=== PATIENT | female | born 1955 | race Caucasian/White ===

== ENCOUNTER → 2019-02-26 | Outpatient (CLI) | payer MEDICARE, BC | LOC: LB.CLINIC 09:57 | PROVIDERS: ATTEND Family Medicine | DX: E03.9 Hypothyroidism, unspecified (principal); G24.4 Idiopathic orofacial dystonia; E78.2 Mixed hyperlipidemia | CPT/HCPCS: 36415; 80048; 84443; 85025 ==

== ENCOUNTER 2023-08-17 09:24 | Day surgery (SDC) | payer MEDICARE, BC ==
[2023-08-17] MEDS: Sodium Chloride 0.9% 1,000 ML IV SCH (09:59)
[2023-08-17] MEDS ORDERED: Propofol 200 MG/20 ML SDV ONE (10:30)
[2023-08-17 10:53] VITALS: BP 141/73; PULSE 67
== END 2023-08-17 11:41 | disposition home or self-care (01) ==
LOC: LB.SDS 09:24
PROVIDERS: ATTEND Surgery
DX: K29.50 Unspecified chronic gastritis without bleeding (principal); K21.9 Gastro-esophageal reflux disease without esophagitis; K31.89 Other diseases of stomach and duodenum; E78.00 Pure hypercholesterolemia, unspecified
CPT/HCPCS: 88305; 88342; J2704; J7030